=== PATIENT | male | born 1980 | race Caucasian/White ===

== ENCOUNTER 2020-03-05 10:24 | Emergency (ER) | payer OTHER ==
[~2020-03-05] VITALS: Ht 177.8 cm; Wt 86.2 kg
[2020-03-05] MEDS ORDERED: LISINOPRIL20 MG PO (10:45)
[2020-03-05] MEDS ORDERED: ZOFRAN4 MG PO (10:46)
[2020-03-05] MEDS ORDERED: NOVOLIN 70100 UNIT/1 SUB-Q (10:46)
[2020-03-05] MEDS ORDERED: ONDANSETRON ODT8 MG PO (13:38)
== END 2020-03-05 13:52 | disposition home or self-care (01) ==
LOC: ED 10:24
DX: K86.1 Other chronic pancreatitis (principal); R79.89 Other specified abnormal findings of blood chemistry; E11.9 Type 2 diabetes mellitus without complications; I10 Essential (primary) hypertension; Z88.5 Allergy status to narcotic agent; Z79.899 Other long term (current) drug therapy; Z79.4 Long term (current) use of insulin
CPT/HCPCS: 80053; 81001; 82010; 82803; 83690; 85025; 96374; 99284-25; J1815; J2405; J7030